=== PATIENT | male | born 1935 | race Caucasian/White ===

== ENCOUNTER 2018-04-11 11:24 | Outpatient (CLI) | payer MEDICARE, OTHER ==
--- NOTE | ~2018-04-11 | OP ---
PATIENT NAME: SHERRILL CLARK MEDICAL RECORD: [id number] :35 LOCATION:D.CAT ADMISSION DATE: SURGEON: ANAND HOUESR MD DATE OF OPERATION: 04/11/2018 PROCEDURE: Left heart catheterization, selective coronary angiography, right radial approach. CATHETERS: Radial sheath, [place] catheter. The procedure was well tolerated, the patient returned to jimenez, Sheath was removed. TR band placed. FINDINGS: Left ventriculography in 30-degree ROBIN view shows mild global hypokinesis. Overall, LV function 40% to 45%. CORONARY ANATOMY: LEFT MAIN: Left main is free of disease. LAD: Free of disease in the diagonal system. CIRCUMFLEX: Free of disease in the marginal system. RIGHT CORONARY ARTERY: Dominant artery, gives rise to PDA, free of disease. IMPRESSION: Mildly decreased LV systolic function. Suspect will improve with mu-ism of normal sinus rhythm, no obstructive coronary artery disease. TRANSINT:[id number] Voice Confirmation ID: [id number] DOCUMENT ID: [id number] ANAND HOUSER MD at 1505 CC: [id number] DICTATION DATE: 04/11/18 1502 COPPER PLATE PRINTER: 04/11/18 1545 DEP CLI 04/11/18 [id number] [place] [address]
--- NOTE | ~2018-04-11 | OP ---
PATIENT NAME: SHERRILL CLARK MEDICAL RECORD: [id number] :35 LOCATION:D.CAT ADMISSION DATE: SURGEON: ANAND HOUSER MD DATE OF OPERATION: 04/11/2018 PROCEDURE: Cardioversion. DESCRIPTION OF PROCEDURE: After general sedation via TIVA anesthesia, single synchronized shock at 200 joules was successful in restoring atrial flutter to normal sinus rhythm. IMPRESSION: Successful cardioversion. COMPLICATIONS: None. We will proceed next with diagnostic angiography. TRANSINT:[id number] Voice Confirmation ID: [id number] DOCUMENT ID: [id number] ANAND HOUSER MD at 1505 CC: [id number] DICTATION DATE: 04/11/18 1439 QUALITY CONTROL TECHNICIAN: 04/11/18 1449 [facility] CLI 04/11/[address] [address]
--- NOTE | ~2018-04-11 | HEMODYNAMI ---
PATIENT:SHERRILL CLARK MEDICAL RECORD: [id number] : 35 LOCATION:[facility] ADMISSION DATE: 04/11/18 Generatedon:04/11/201815:04 Patient name: SHERRILL CLARK Patient #: [id number] SSN: : 1935 Date of study: 04/11/2018 Page: Of Hemodynamic Procedure Report Patient Data Patient Demographics Procedure consent was obtained First Name: SHERRILL Gender: Male Last Name: EDUARDO : 1935 Patient #: [id number] Age: 82 year(s) Race: Unknown Additional ID: [id number] Contact details Address: [place] [address] State: [place] City: [place] Zip code: [address] Past Medical History Allergies Allergen Reaction Date Comments Reported Other allergy 04/11/2018 PCN, Meloxicam Admission Admission Data Admission Date: 04/11/2018 Admission Time: 11:24 Procedure Procedure Types Cath Procedure Diagnostic Procedure LHC LHC w/Coronaries Cardioversion External Procedure Description Procedure Date Procedure Date: 04/11/2018 Procedure Start Time: 14:47 Procedure End Time: 15:03 Procedure Staff Name Function Jun Aguilar CRNA Additional personnel Remington Calvert MD Performing Physician Donnie Maldonado RT Monitor Emi Sexton RT Scrub Rene Tyson RN Nurse Jeny Fierro RT Monitor Procedure Data Cath Procedure Fluoroscopy Diagnostic fluoroscopy Total fluoroscopy Time: 3 time: 3 min min Diagnostic fluoroscopy Total fluoroscopy dose: 326 dose: 326 mGy mGy Contrast Material Contrast Material Type Amount (ml) Isovue 300 68 Entry Location Entry Primary Successful Side Size Upsize Upsize Entry Closure Meraz ccessful Closure Location (Fr) 1 (Fr) 2 (Fr) Remarks Device Remarks Radial Right 6 Fr Mechanical artery Short Compression Estimated blood loss: 5 ml Diagnostic catheters Device Type Used For End Catheter Placement DIAGNOSTIC Coinjock 110cm 5 LV Angiography Fr catheter ([id number]) DIAGNOSTIC Coinjock 110cm 5 Left Coronary Fr catheter ([id number]) Angiography DIAGNOSTIC AR MOD 5Fr Right Coronary Catheter ([id number]) Angiography Procedure Complications No complications Procedure Medications Medication Administration Route Dosage 0.9% NaCl I.V. 100 ml/hr Oxygen etCO2 Nasal cannula 3 l/min Heparin Flush Bag added to field 2 bags (1000units/500ml NS) Lidocaine 2% added to field 20 Radial Cocktail added to field 1 syringe (Verapomil 2mg/Nitro 400mcg/Heparin 1500units) Refer to Anesthesia Notes for Sedation Medications Radial Cocktail I.A. 1 syringe (Verapomil 2mg/Nitro 400mcg/Heparin 1500units) Oxygen 3 l/min Hemodynamics Rest Heart Rate: 62 (bpm) Pressure Samples Time Site Value (mmHg) Purpose Heart Use Rate(bpm) 14:51 LV 85/4,6 EDP 76 14:51 LV 88/10,11 Pullback 76 14:51 AO 88/62(75) Pullback 76 Gradients Valve Time Site 1 Site 2 Mean SEP/DFP Peak To Heart Use (mmHg) (sec/min) Peak Rate (mmHg) (bpm) Aortic 14:51 LV AO 0 11 0 76 88/10,11 88/62(75) Calculations Valve P-P Mean Valve Index Valve Source Name Gradient Area Flow (cm2) Aortic 0 0 0 0 Snapshots Pre Cath Intra NCS Post Cath Vital Signs Time Heart Resp SPO2 etCO2 NIBP (mmHg) Rhythm Pain Sedation Rate (ipm) (%) (mmHg) Status Level (bpm) 14:22:04 73 16 98 24.6 120/80(109) NSR 0 (11) 10(A) , No pain 14:26:23 68 14 98 28.4 136/101(115) NSR 0 (11) 10(A) , No pain 14:30:47 72 12 89 0 103/63(75) NSR 0 (11) 8(A) , No pain 14:35:03 79 14 90 0 104/77(87) NSR 0 (11) 8(A) , No pain 14:39:19 75 15 88 0 107/76(92) NSR 0 (11) 8(A) , No pain 14:43:37 78 14 87 0 97/69(83) NSR 0 (11) 8(A) , No pain 14:47:51 76 14 96 2.2 101/71(84) NSR 0 (11) 8(A) , No pain 14:52:09 75 14 96 0 94/63(80) NSR 0 (11) 8(A) , No pain 14:56:23 68 13 94 1.4 100/64(86) NSR 0 (11) 9(A) , No pain 15:00:39 77 13 88 8.9 101/68(85) NSR 0 (11) 9(A) , No pain Medications Time Medication Route Dose Verified Delivered Reason Notes Effectiveness by by 14:19:50 0.9% NaCl I.V. 100 Rene Rene Per ml/hr Marbella Tyson physician RN RN 14:20:01 Oxygen etCO2 3 l/min Rene Rene Per Nasal Marbella Tyson physician cannula RN RN 14:20:13 Heparin Flush added 2 bags Rene Rene used for Bag to Lorbriseida Tyson procedure (1000units/500ml field RN RN NS) 14:20:24 Lidocaine 2% added 20ml Rene Rene for local to vial Lorigan Marbella anesthetic field RN RN 14:20:40 Radial Cocktail added 1 Rene Rene used for (Verapomil to syringe Lorigan Lorigan procedure 2mg/Nitro field RN RN 400mcg/Hepari 14:27:55 Refer to Rene Rene for sedation Anesthesia Notes Marbella Tyson for Sedation RN RN Medications 14:44:43 Oxygen simple 3 l/min Rene Rene for low 02 mask Marbella live RN RN 14:48:36 Radial Cocktail I.A. 1 Rene Remington for (Verapomil syringe Lorigan Enrike vasodilation 2mg/Nitro MONTY JOHNSON 400mcg/Hepari Procedure Log Time Note 13:50:10 Rene Tyson RN sent for patient. Start room use. 14:05:48 Informed consent obtained and on chart 14:06:09 Diagnostic Cath status Elective 14:06:23 Time tracking: Regular hours (M-F 7:00 - 5:00) 14:06:27 Plan of Care:Hemodynamics will remain stable., Cardiac rhythm will remain stable., Comfort level will be maintained., Respiratory function will remain adequate., Patient/ family verbilizes understanding of procedure., Procedure tolerated without complication., Recovers from procedure without complications.. 14:06:53 Patient received from Pre/Post Procedure Room to [facility] 3 Alert and oriented. Tansferred to table in Supine position. 14:06:54 Correct patient and procedure confirmed by team. 14:06:54 Warm blankets applied, and melisa hugger turned on for patient comfort. 14:06:55 ECG and BP/O2 sat monitors applied to patient. 14:06:56 Pre-op teaching completed and patient verbalized understanding. 14:06:56 Pre-procedure instructions explained to patient. 14:07:05 H&P Date Dictated: 04/07/2018 Within 30 days and on chart., H&P Addendum completed by physician on day of procedure. (MUST COMPLETE FOR ALL OUTPATIENTS). 14:07:32 Family in waiting room. 14:07:35 Patient NPO since Midnight. 14:15:34 Patient allergic to Other allergyPCN, Meloxicam 14:15:41 Is the patient allergic to Iodine/contrast media? No. 14:15:45 Was the patient premedicated? Yes 14:15:54 Is patient on blood thinner?No 14:16:00 Patient diabetic? No. 14:16:06 Snore? Yes 14:16:07 Sleep apnea? Yes 14:16:09 Deviated septum? No 14:16:16 Dentures? No ? 14:16:36 Patient pain scale 0/10 ?. 14:16:46 IV patent on arrival in left antecubital with 0.9% NaCl at [facility]. 14:17:42 Lab results completed and on chart. 14:17:45 Alarms reviewed by R. N. 14:17:46 Sharps counted by scrub and verified by R.N. 14:17:48 Physician paged 14:19:50 0.9% NaCl 100 ml/hr I.V. was administered by Rene Tyson RN; Per physician; 14:20:01 Oxygen 3 l/min etCO2 Nasal cannula was administered by Rene Tyson RN; Per physician; 14:20:13 Heparin Flush Bag (1000units/500ml NS) 2 bags added to field was administered by Rene Tyson RN; used for procedure; 14:20:24 Lidocaine 2% 20ml vial added to field was administered by Rene Tyson RN; for local anesthetic; 14:20:40 Radial Cocktail (Verapomil 2mg/Nitro 400mcg/Heparin 1500units) 1 syringe added to field was administered by Rene Lorigan RN; used for procedure; 14::46 Vital chart was started 14:21:35 Quick Combo opened to sterile field. 14:22:33 Jun Aguilar CRNA present and monitoring patient for TIVA. 14:22:36 Quick combo pads placed on patients chest and back. 14:22:53 Baseline sample Acquired. 14:23:00 Rhythm: atrial fibrillation 14:23:01 Full Disclosure recording started 14:23:09 Previous problem with sedation/anesthesia? No ? 14:23:11 Opens mouth fully? Yes 14:23:12 Sticks out tongue? Yes 14:23:14 Airway obstruction? No ? 14:25:56 --------ALL STOP TIME OUT------ 14:25:56 Physician arrived 14:25:57 Final Timeout: patient, procedure, and site verified with staff and physician. All members of the team are in agreement. 14:26:02 Physical assessment completed. ASA score P 3 - A patient with severe systemic disease as per Remington Calvert MD. 14:26:06 Sedation plan: TIVA Medication:Propofol 14:27:17 Procedure started. 14:27:54 Defibrillator synced and charged to 50 Joules. 14:27:55 Refer to Anesthesia Notes for Sedation Medications was administered by Rene Tyson RN; for sedation; 14:27:55 Shock delivered. 14:28:13 Defibrillator synced and charged to 200 Joules. 14:28:43 Shock delivered. 14:29:12 Patient cardioverted to sinus rhythm . 14:31:24 Right Radial & Right Groin area was prepped with chlora-prep and draped in sterile fashion 14:38:32 Alarms reviewed by R. N. 14:38:33 Sharps counted by scrub and verified by R.N. 14:38:37 Physician arrived 14:38:38 Final Timeout: patient, procedure, and site verified with staff and physician. All members of the team are in agreement. 14:38:38 --------ALL STOP TIME OUT------ 14:38:40 Right Radial & Right Groin site verified by team. 14:38:43 Physical assessment completed. ASA score P 3 - A patient with severe systemic disease as per Remington Calvert MD. 14:38:46 Sedation plan: TIVA Medication:Propofol 14:39:08 Use device set Radial Dx or PCI 14:39:09 ACIST Syringe (88319) opened to sterile field. 14:39:10 ACIST Manifold (34123) opened to sterile field. 14:39:10 ACIST Hand Control (88981) opened to sterile field. 14:39:14 Bag Decanter (2001S) opened to sterile field. 14:39:14 Medline Cath Pack ([id number]) opened to sterile field. 14:39:16 SHEATH 6Fr Prelude Radial ([id number]) opened to sterile field. 14:39:17 DIAGNOSTIC WIRE .035 260cm J wire (677289) opened to sterile field. 14:43:20 Zero performed for pressure channel P1 14:43:23 Zero performed for pressure channel P1 14:44:43 Oxygen 3 l/min simple mask was administered by Rene Tyson RN; for low 02 sats; 14:47:18 Local anesthetic to right radial artery with Lidocaine 2% by Remington Calvert MD.INITIAL ACCESS ONLY 14:48:36 Radial Cocktail (Verapomil 2mg/Nitro 400mcg/Heparin 1500units) 1 syringe I.A. was administered by Remington Calvert MD; for vasodilation; 14:48:38 A 6 Fr Short sheath was inserted into the Right Radial artery 14:49:08 A DIAGNOSTIC Coinjock 110cm 5 Fr catheter (480602) was advanced over the wire and used for LV Angiography. 14:51:15 LV gram done using ROBIN 14:51:16 LV hemodynamics recorded. 14:51:20 Injector settings: Ml/sec: 5, Volume: 15, 14:51:26 EF : 45 % 14:52:39 A DIAGNOSTIC Coinjock 110cm 5 Fr catheter (103546) was advanced over the wire and used for Left Coronary Angiography. 14:54:10 Catheter removed. 14:55:21 A DIAGNOSTIC AR MOD 5Fr Catheter (994620L) was advanced over the wire and used for Right Coronary Angiography. 14:56:20 Catheter removed. 14:56:42 TR BAND Large ([id number]) opened to sterile field. 14:56:54 Sheath removed intact; hemostasis achieved with Mechanical Compression to the Right Radial artery. 14:56:56 Procedure ended.(Physican Out) 14:57:14 Fluoroscopy time 03.00 minutes. 14:57:18 Fluoroscopy dose: 326 mGy 14:57:18 Flurop Dose total: 326 14:57:25 Contrast amount:Isovue 300 68ml. 14:57:28 Sharps counted by scrub and verified by R.N. 14:57:30 TR band inflated with 12cc of air. 14:57:31 Insertion/operative site no bleeding no hematoma. 14:57:37 Post right radial artery:stable, clean and dry 14:57:38 Post Procedure Pulses reassessed and unchanged 14:57:40 Post-procedure physical assessment completed. ASA score P 2 - A patient with mild systemic disease as per Remington Calvert MD. 14:57:43 Post procedure rhythm: sinus rhythm 14:57:48 Estimated blood loss: 5 ml 14:57:49 Post procedure instruction explained to patient.Patient verbalizes understanding. 14:57:55 Patient needs reinforcement of post procedure teaching. 14:58:12 Procedure Complication : No complications 14:58:22 Baseline sample Acquired. 14:58:28 See physician's report for complete and final results. 15:00:05 Procedure and supply charges have been captured, reviewed, submitted and are correct. 15:03:01 Vital chart was stopped 15:03:04 Report given to Pre/Post Procedure Room. 15:03:07 Patient transfered to Pre/Post Procedure Room with Stretcher. 15:03:15 Full Disclosure recording stopped 15:03:15 Procedure ended. 15:03:21 End room use (Document Last) Device Usage Item Name Manufacture Quantity Catalog Number Hospital Part Current M inimal Lot# / Charge Number Stock Stock Serial# Code Quick Combo HackerEarth Systems 1 [id number] 463541 012820 890942 5 ACIST Syringe Acist 1 04079 066767 125788 012290 2 0 (50137) Medical Systems Inc ACIST Hand Acist 1 38424 193313 676134 171303 5 Control (88852) Medical Systems Inc ACIST Manifold Acist 1 76466 484180 607708 867120 5 (93055) Medical Systems Inc Medline Cath Cardinal 1 [id number] 132845 46383 906232 5 Pack Health ([id number]) Bag Decanter Microtek 1 416445 10747 045525 5 () Medical Inc. SHEATH 6Fr Merit 1 [id number] 876607 989066 909564 5 Prelude Radial Medical ([id number]) DIAGNOSTIC WIRE St Javon 1 720780 276267 646502 536502 3 0 .035 260cm J wire (953356) DIAGNOSTIC Terumo 1 40-2172 122742 657846 016157 5 Coinjock 110cm 5 Fr catheter (098138) DIAGNOSTIC AR Cardinal 1 [id number] 893783 652668 546832 1 5 MOD 5Fr Health Catheter (801358W) TR BAND Large Terumo 1 [id number] 711405 454847 777884 4 0 ([id number]) Signature Audit [place] Stage Time Signature Unsigned Intra-Procedure 04/11/2018 Jeny 3:04:37 PM Counts RT(R) Signatures Monitor : Donnie Maldonado RT Signature : Date : Time : Monitor : Jeny Signature : Counts RT Date : Time : [address] [address]
[~2018-04-11 11:24] MED LIST: BETAPACE 120 M120 MG PO; XARELTO20 MG PO
[2018-04-11 12:51] LABS: BASOPHILS 0.5 % (0-2); EOSINOPHILS 2.9 % (0-7); HEMATOCRIT 43.4 % (42.0-54.0); IMMATURE GRANULOCYTES 0.2 % (0-5); MCH 33.8 pg (26.0-34.0); MCHC 34.6 g/dL (31.0-37.0); MCV 97.7 fL (80.0-100.0); MEAN PLATELET VOLUME 10.5 fL (7.4-10.4); MONOCYTES 15.5 % (2-11); NEUTROPHILS 46.9 % (40-80); PLATELET COUNT 200 10x3/uL (130-400); RBC 4.44 10x6/uL (4.20-6.10); RDW 12.2 % (11.5-14.5); WBC 6.5 10x3/uL (4.8-10.8)
[2018-04-11 12:56] LABS: INR 1.11 (0.85-1.17); PROTIME 13.9 SECONDS (11.6-15.0)
[2018-04-11 13:03] LABS: CALC OSMOLALITY 280 mosm/kg (275-300); CALCIUM 8.5 mg/dL (8.5-10.1); CARBON DIOXIDE 27.7 mmol/L (21.0-32.0); CHLORIDE - SERUM 105 mmol/L (98-107); CREATININE - SERUM 0.9 mg/dL (0.6-1.3); GLUCOSE 104 mg/dL (74-106); POTASSIUM - SERUM 4.5 mmol/L (3.5-5.1); SODIUM 140 mmol/L (136-145); UREA NITROGEN 18 mg/dL (7-18); eGFR NON AFRICAN AMERICAN 86 mL/min (90-120)
== END 2018-04-11 18:14 ==
LOC: D.CATH 11:24
PROVIDERS: Internal Medicine Interventional Cardiology
DX: I48.1 Persistent atrial fibrillation (principal); R53.83 Other fatigue; R53.81 Other malaise; R94.31 Abnormal electrocardiogram [ECG] [EKG]; R06.00 Dyspnea, unspecified; I42.9 Cardiomyopathy, unspecified; I20.9 Angina pectoris, unspecified

== ENCOUNTER 2019-01-30 15:19 | Inpatient (IN) | payer MEDICARE ==
[~2019-01-30] VITALS: Ht 182.9 cm; Wt 118.4 kg
[2019-01-30 15:50] VITALS: BMI 35.5
[2019-01-30 18:30] LABS: APPEARANCE CLEAR (CLEAR); BILIRUBIN NEGATIVE (NEGATIVE); COLOR YELLOW (YELLOW); GLUCOSE NEGATIVE (NEGATIVE); KETONE NEGATIVE (NEGATIVE); NITRITE NEGATIVE (NEGATIVE); PROTEIN NEGATIVE (NEGATIVE); UROBILINOGEN NORMAL (NORMAL)
[2019-01-30 18:35] LABS: BASOPHILS 0.5 % (0-2); EOSINOPHILS 4.6 % (0-7); HEMATOCRIT 40.5 % (42.0-54.0); HEMOGLOBIN 13.6 g/dL (13.5-17.5); IMMATURE GRANULOCYTES 0.5 % (0-5); LYMPHOCYTES 34.5 % (15-50); MCH 33.5 pg (26.0-34.0); MCHC 33.6 g/dL (31.0-37.0); MCV 99.8 fL (80.0-100.0); MEAN PLATELET VOLUME 10.8 fL (7.4-10.4); MONOCYTES 12.1 % (2-11); NEUTROPHILS 47.8 % (40-80); PLATELET COUNT 192 10x3/uL (130-400); RBC 4.06 10x6/uL (4.20-6.10); RDW 12.4 % (11.5-14.5); WBC 7.3 10x3/uL (4.8-10.8)
[2019-01-30 19:01] LABS: INR 1.23 (0.85-1.17)
[2019-01-30 19:06] LABS: ALBUMIN 3.4 g/dL (3.4-5.0); ALKALINE PHOSPHATASE 34 U/L (46-116); ALT (SGPT) 34 U/L (10-68); BILIRUBIN - TOTAL 0.51 mg/dL (0.2-1.3); CALC OSMOLALITY 282 mosm/kg (275-300); CALCIUM 8.2 mg/dL (8.5-10.1); CARBON DIOXIDE 26.6 mmol/L (21.0-32.0); CHLORIDE - SERUM 104 mmol/L (98-107); GLUCOSE 146 mg/dL (74-106); POTASSIUM - SERUM 4.3 mmol/L (3.5-5.1); SODIUM 139 mmol/L (136-145); UREA NITROGEN 18 mg/dL (7-18); eGFR NON AFRICAN AMERICAN 76 mL/min (90-120)
--- NOTE | 2019-01-30 19:45 | NUR ---
SITTING UP IN BED TALKING TO FAMILY. ALERT AND ORIENTED X4. RESP EVEN AND NONLABORED. BBS CTA. ABD IS DISTENDED AND FIRM. BS PRESENT X4 QUADS. REPORTS BLOODY BM TODAY. HAS HX OF HEMORRHOIDECTOMY. DENIES PAIN. DENIES N/V/D. 1+ EDEMA NOTED TO BLE. AMBULATORY. PROTONIX DRIP INFUSING IN LT WRIST. NO DISTRESS. SR ELEVATED X1. CL IN REACH.
[2019-01-30 20:52] VITALS: BP 112/73
--- NOTE | 2019-01-30 22:00 | NUR ---
22G IV CATH INSERTED IN LT FOREARM FOR NS @ 75 ML/HR. PROTONIX INFUSING IN LT WRIST. CL IN REACH.
[2019-01-31 00:53] VITALS: BP 142/68
--- NOTE | 2019-01-31 03:27 | NUR ---
HAS RESTED WELL TONIGHT. NO BM SO FAR THIS SHIFT. CL IN REACH.
[2019-01-31 05:42] VITALS: BP 129/63
[2019-01-31 06:25] LABS: ALBUMIN 3.1 g/dL (3.4-5.0); ALKALINE PHOSPHATASE 27 U/L (46-116); ALT (SGPT) 30 U/L (10-68); BILIRUBIN - TOTAL 0.74 mg/dL (0.2-1.3); CALC OSMOLALITY 284 mosm/kg (275-300); CALCIUM 8.3 mg/dL (8.5-10.1); CARBON DIOXIDE 26.8 mmol/L (21.0-32.0); CHLORIDE - SERUM 107 mmol/L (98-107); CREATININE - SERUM 0.9 mg/dL (0.6-1.3); GLUCOSE 112 mg/dL (74-106); POTASSIUM - SERUM 4.1 mmol/L (3.5-5.1); PROTEIN - SERUM 6.6 g/dL (6.4-8.2); SODIUM 142 mmol/L (136-145); UREA NITROGEN 15 mg/dL (7-18); eGFR NON AFRICAN AMERICAN 85 mL/min (90-120)
[2019-01-31 08:13] LABS: BASOPHILS 0.5 % (0-2); EOSINOPHILS 5.2 % (0-7); HEMATOCRIT 37.3 % (42.0-54.0); HEMOGLOBIN 12.4 g/dL (13.5-17.5); IMMATURE GRANULOCYTES 0.5 % (0-5); LYMPHOCYTES 35.1 % (15-50); MCH 33.1 pg (26.0-34.0); MCHC 33.2 g/dL (31.0-37.0); MCV 99.5 fL (80.0-100.0); MEAN PLATELET VOLUME 11.2 fL (7.4-10.4); NEUTROPHILS 42.7 % (40-80); PLATELET COUNT 180 10x3/uL (130-400); RBC 3.75 10x6/uL (4.20-6.10); RDW 12.6 % (11.5-14.5); WBC 6.2 10x3/uL (4.8-10.8)
[2019-01-31 08:48] VITALS: Ht 182.9 cm; Wt 118.4 kg
[2019-01-31 09:13] VITALS: BP 151/89
--- NOTE | 2019-01-31 10:23 | NUR ---
MORNING ASSESSMENT COMPLETE. SEE ASSESSMENT FLOWSHEET FOR FURTHER DETAILS. PT LYING IN BED AAO X4 TO PERSON, PLACE, TIME, AND SITUATION. DENIES NEEDS AT THSI TIME. CL IN REACH. SIDE RAILS UP X3 FOR PT SAFETY. BED IN LOWEST POSITION.
--- NOTE | 2019-01-31 13:47 | HP ---
PATIENT: SHERRILL JARRETT MEDICAL RECORD: [id number] ACCOUNT: [id number] LOCATION:D.MS [facility] : 35 ADMISSION DATE: 01/30/19 PCP: ASAEL ESTES DO HISTORY AND PHYSICAL EXAMINATION HISTORY OF PRESENT ILLNESS: Mr. Jarrett is an 83-year-old white male that presents to the clinic today with 1- to 2-day history of bleeding per rectum. It started out with some bright red blood, now dark black stools. Really no abdominal pain. He is on Eliquis for chronic atrial fib and history of thromboembolic stroke. His hemoglobin is stable. Due to his advanced age, anticoagulation therapy, and risk of deterioration, he is admitted at this time for further evaluation and GI consult will be obtained. PAST MEDICAL HISTORY: Significant for osteoarthritis, vertigo, obesity, macular degeneration, chronic atrial fibrillation, hyperlipidemia, KELL, fatigue, rhinitis, and constipation. PAST SURGICAL HISTORY: Previous surgeries include cataracts, bilateral knee replacements in 1999, and colonoscopy in 1993. ALLERGIES: INCLUDE MOBIC AND PENICILLIN. HOME MEDICATIONS: Include vitamin D, pravastatin 10 mg a day, Eliquis 5 b.i.d., sotalol 80 mg b.i.d., sildenafil p.r.n., ipratropium, fish oil, ICaps, and Flonase p.r.n. FAMILY HISTORY: Unremarkable. SOCIAL HISTORY: The patient used tobacco for 34 years. He quit in 1987. He does not drink. He is and his is with him today. REVIEW OF SYSTEMS: No weight loss. No fever, chills, or sweats. No chest pain or shortness of breath. No abdominal pain. History of constipation. Recent bloody stools with black tarry stools. No dysuria. PHYSICAL EXAMINATION: HEAD: Normocephalic. HEART: Regular. LUNGS: Clear. ABDOMEN: Soft. RECTAL: Reveals no masses. It is strongly Hemoccult positive. EXTREMITIES: Lower extremities reveal no edema. IMPRESSION: 1. GI bleed. 2. Chronic anticoagulation therapy secondary to atrial fib. PLAN: Admit. GI consult. Hold Eliquis for now. Telemetry. See orders for plan. TRANSINT:[id number] Voice Confirmation ID: [id number] DOCUMENT ID: [id number] HISTORY AND PHYSICAL [id number] SHERRILL JARRETT ASAEL ESTES DO at 1347 CC: [id number] DICTATION DATE: 01/30/191836 SUPPORT GROUP MANAGER: 01/30/191909 ADM IN [place] [address] [place] [id number]
[2019-01-31 14:08] VITALS: BP 155/73
--- NOTE | 2019-01-31 19:20 | NUR ---
DRINKING GOLYTELY PREP. INSTRUCTED TO CALL STAFF AFTER BM SO STAFF CAN LOOK AT IT. INFSTRUCTED OF NPO AFTER MIDNIGHT AND HE VERBALIZED UNDERSTANDING. WANTS TO SIGN SURGICAL CONSENTS FOR HIM IN AM. ALERT AND ORIENTED X4. RESP EVEN AND NONLABORED. ABD DISTENDED AND FIRM. BS HYPERACTIVE X4 QUADS. DENIES PAIN. AMBULATORY. NS @ 75 ML/HR INFUSING IN LT WRIST. NEXIUM DRIP INFUSING IN LT FOREARM WITHOUT DIFF. SR ELEVATED X2. CL IN REACH.
[2019-01-31 21:18] VITALS: BP 170/87
--- NOTE | 2019-01-31 23:50 | NUR ---
PT DRANK ALL OF GOLYTELY. BMS HAVE BEEN LOOSE AND DARK BROWN IN COLOR. NO VISIBLE BLOOD NOTED. PT LILIANE PREP WELL. NO DISTRESS. DENIES PAIN. CL IN REACH.
[2019-02-01] VITALS (8 sets, daily range): BP systolic 132–178; BP diastolic 69–102
[2019-02-01 05:05] LABS: BASOPHILS 0.3 % (0-2); EOSINOPHILS 5.4 % (0-7); HEMATOCRIT 37.7 % (42.0-54.0); HEMOGLOBIN 12.7 g/dL (13.5-17.5); IMMATURE GRANULOCYTES 0.5 % (0-5); LYMPHOCYTES 32.6 % (15-50); MCH 33.2 pg (26.0-34.0); MCHC 33.7 g/dL (31.0-37.0); MCV 98.7 fL (80.0-100.0); MEAN PLATELET VOLUME 10.9 fL (7.4-10.4); MONOCYTES 14.1 % (2-11); NEUTROPHILS 47.1 % (40-80); PLATELET COUNT 173 10x3/uL (130-400); RBC 3.82 10x6/uL (4.20-6.10); RDW 12.6 % (11.5-14.5); WBC 6.1 10x3/uL (4.8-10.8)
[2019-02-01 05:31] LABS: ALBUMIN 3.3 g/dL (3.4-5.0); ALKALINE PHOSPHATASE 26 U/L (46-116); CALC OSMOLALITY 282 mosm/kg (275-300); CALCIUM 8.1 mg/dL (8.5-10.1); CHLORIDE - SERUM 108 mmol/L (98-107); CREATININE - SERUM 0.9 mg/dL (0.6-1.3); GLUCOSE 102 mg/dL (74-106); PROTEIN - SERUM 6.8 g/dL (6.4-8.2); SODIUM 142 mmol/L (136-145); UREA NITROGEN 12 mg/dL (7-18); eGFR NON AFRICAN AMERICAN 85 mL/min (90-120)
[2019-02-01 05:41] LABS: ALT (SGPT) 40 U/L (10-68)
--- NOTE | 2019-02-01 05:57 | NUR ---
STATES HIS BMS ARE CLEAR. DENIES PAIN. NO DISTRESS. CL IN REACH.
--- NOTE | 2019-02-01 07:45 | NUR ---
AWAKE AND ALERT. ORIENTED X3. NO C/O AT THIS TIME. REPORTS WATERY STOOLS LAST PM AFTER GOLYTLY.WILL MONITOR. SKIN IS INTACT WITHOUT REDNESS. IV TO LEFT WRIST AND LEFT FOREARM ARE PATENT WITHOUT REDNESS AT INSERTION SITE. DENIES NEEDS.
--- NOTE | 2019-02-01 08:30 | NUR ---
HERE AND CONSENTS COMPLETED.DENIES NEEDS.
--- NOTE | 2019-02-01 10:30 | NUR ---
OFF UNIT VIA BED FOR PROCEDURE.
--- NOTE | 2019-02-01 12:46 | NUR ---
RETURNED FROM PROCEDURE. A/O X3. FAMILY AT BEDSIDE. DENIES NEEDS.
--- NOTE | 2019-02-01 13:30 | NUR ---
UP TO BR PER SELF. VOIDED WITHOUT DIFFICULTY. DENIES NEEDS. NO CHANGES NOTED.
--- NOTE | 2019-02-01 13:49 | MORECARE ---
CASE MANAGEMENT DISCHARGE SUMMARY PATIENT: SHERRILL CLARK UNIT: [id number] ADM DATE: 01/30/19 AGE: 83 : 35 SEX: M ROOM/BED: D.2207 AUTHOR: PATTY MONTEZ PHYSICIAN: REFERRING PHYSICIAN: ASAEL ESTES DO DATE OF SERVICE: 02/01/19 Discharge Plan Patient Name: SHERRILL CLARK Facility: [facility]:[place] : 1935 Planned Disposition: Home Anticipated Discharge Date: Discharge Date: Expected LOS: Initial Reviewer: [email or web address] Initial Review Date: 01/30/2019 Generated: 02/01/19 2:49 pm Comments DCP- Discharge Planning Updated by [email or web address]: Emma Muir on 02/01/19 12:[address] Patient Name: SHERRILL CLARK Admission Status: Urgent Accout number: [id number] Admission Date: 01-30-2019 : 1935 Admission Diagnosis: Attending: ASAEL ESTES Current LOS: 2 Anticipated DC Date: Planned Disposition: Home Primary Insurance: MEDICARE A & B Discharge Planning Comments: CM met with patient to complete initial dc planning assessment. CM educated patient on the CM role and verbal consent given by patient to complete assessment. Patient lives at home with his where he is independent with his care. At discharge patient plans to return home and feels this is a safe discharge. CM discussed availability of home health, rehab services, and medical equipment. He stated that he has a BSC,walker, and crutches at home, but does not use anything. His , Pedro Pablo will be his route driver home. Patient denied known discharge needs at this time. CM will continue to follow and will assist as needed with dc plans/needs. Applied Researcher: Emma Muir DCPIA - Discharge Planning Initial Assessment Updated by [email or web address]: Emma Muir on 02/01/19 1:46 pm * Is the patient Alert and Oriented? Yes * How many steps to enter\exit or inside your home? * PCP [facility] * Pharmacy [facility] * Preadmission Environment Home with Family * ADLs Independent * Equipment Bedside Commode Crutch Rolling Walker * List name and contact numbers for known caregivers / representatives who currently or will assist patient after discharge: PEDRO PABLO (SPOUSE) [phone] * Verbal permission to speak to the caregivers and representatives has been obtained from the patient. N/A * Community resources currently utilized None * Additional services required to return to the preadmission environment? No * Can the patient safely return to the preadmission environment? Yes * Has this patient been hospitalized within the prior 30 days at any hospital? No Patient Name: EDUARDO SHERRILL Page [id number] at 1349 All edits/amendments must be made on the electronic document DICTATION DATE: 02/01/19 1348 CADDYMASTER: NORMA 02/01/19 1348 RPT#: [id number] OK DATE: STATUS: ADM IN [facility] [address] [place] [address] END OF REPORT
--- NOTE | 2019-02-01 14:53 | NUR ---
Nutrition follow up Pt was NPO past MN Diet advanced to full liquid Pt reports tolerating full liquid diet well RD following
--- NOTE | 2019-02-01 18:24 | NUR ---
ATE ALL OF FULL LIQUID SUPPER TRAY. DENIES NEEDS. NO CHANGES NOTED.
--- NOTE | 2019-02-01 20:11 | NUR ---
AWAKE,ALERT.NO COMPLAINTS VOICED. RESP EVEN AND UNLABORED. NO DISTRESS NOTED. IV SITE X 2 TO LEFT ARM WITHOUT REDNESS OR EDEMA NOTED. UP AD EASTON IN ROOM. CL IN REACH
[2019-02-02 00:51] VITALS: BP 163/86
--- NOTE | 2019-02-02 02:55 | NUR ---
I have reviewed this patient and I concur with the Shift Assessment completed by the Licensed Practical Nurse today this shift.
[2019-02-02 04:00] VITALS: BP 153/94
[2019-02-02 04:40] LABS: BASOPHILS 0.3 % (0-2); HEMATOCRIT 37.8 % (42.0-54.0); HEMOGLOBIN 12.7 g/dL (13.5-17.5); IMMATURE GRANULOCYTES 0.1 % (0-5); LYMPHOCYTES 24.2 % (15-50); MCH 33.1 pg (26.0-34.0); MCHC 33.6 g/dL (31.0-37.0); MCV 98.4 fL (80.0-100.0); MEAN PLATELET VOLUME 10.8 fL (7.4-10.4); MONOCYTES 14.1 % (2-11); NEUTROPHILS 58.3 % (40-80); PLATELET COUNT 170 10x3/uL (130-400); RBC 3.84 10x6/uL (4.20-6.10); RDW 12.6 % (11.5-14.5); WBC 7.2 10x3/uL (4.8-10.8)
[2019-02-02 04:48] LABS: ALBUMIN 3.3 g/dL (3.4-5.0); ALKALINE PHOSPHATASE 27 U/L (46-116); ALT (SGPT) 37 U/L (10-68); CALC OSMOLALITY 281 mosm/kg (275-300); CALCIUM 8.2 mg/dL (8.5-10.1); CARBON DIOXIDE 30.5 mmol/L (21.0-32.0); CHLORIDE - SERUM 106 mmol/L (98-107); CREATININE - SERUM 0.9 mg/dL (0.6-1.3); GLUCOSE 101 mg/dL (74-106); POTASSIUM - SERUM 3.8 mmol/L (3.5-5.1); PROTEIN - SERUM 6.9 g/dL (6.4-8.2); SODIUM 142 mmol/L (136-145); UREA NITROGEN 10 mg/dL (7-18); eGFR NON AFRICAN AMERICAN 85 mL/min (90-120)
--- NOTE | 2019-02-02 07:41 | NUR ---
AWAKE AND ALERT. ORIENTED X3. C/O HEADACHE THIS AM. LUNGS ARE CLEAR BILATERALLY, NO COUGH NOTED. SKIN IS INTACT WITHOUT REDNESS. SL TO LEFT FOREARM IS PATENT WITHOUT REDNESS AT INSERTION SITE. IV TO LEFT WRIST IS PATETN WITHOUT REDNESS AT INSERTION SITE. DENIES NEEDS.
[2019-02-02 09:39] VITALS: BP 134/82
--- NOTE | 2019-02-02 09:45 | NUR ---
C/O HEADACHE. GIVEN HYDROCODONE 7.5 PO FOR SAME. WILL MONITOR.
[2019-02-02] MEDS ORDERED: PROTONIX40 MG PO (11:16)
--- NOTE | 2019-02-02 11:21 | NUR ---
RESTING QUIETLY WTIH EYES CLOSED. REPORTS HEADACHE ALMOST GONE.
[2019-02-02] MEDS ORDERED: HYDROCODON-ACE1 EAC7 PO (12:17)
--- NOTE | 2019-02-02 12:31 | MORECARE ---
CASE MANAGEMENT DISCHARGE SUMMARY PATIENT: SHERRILL CLARK UNIT: [id number] ADM DATE: 01/30/19 AGE: 83 : 35 SEX: M ROOM/BED: D.2207 AUTHOR: PATTY MONTEZ PHYSICIAN: REFERRING PHYSICIAN: ASAEL ESTES DO DATE OF SERVICE: 02/02/19 Discharge Plan Patient Name: SHERRILL CLARK Facility: [facility]:[place] : 1935 Planned Disposition: Home Anticipated Discharge Date: Discharge Date: Expected LOS: Initial Reviewer: [email or web address] Initial Review Date: 01/30/2019 Generated: 02/02/19 1:31 pm Comments DCP- Discharge Planning Updated by [email or web address]: Emma Muir on 02/02/19 11:[address] PATIENT WILL BE DISCHARGING HOME TODAY, IMM SERVED AND EXPLAINED. PATIENT DENIES ANY NEEDS AT THIS TIME DCP- Discharge Planning Updated by [email or web address]: Emma Muir on 02/01/19 12:[address] Patient Name: SHERRILL CLARK Admission Status: Urgent Accout number: [id number] Admission Date: 01-30-2019 : 1935 Admission Diagnosis: Attending: ASAEL ESTES Current LOS: 2 Anticipated DC Date: Planned Disposition: Home Primary Insurance: MEDICARE A & B Discharge Planning Comments: CM met with patient to complete initial dc planning assessment. CM educated patient on the CM role and verbal consent given by patient to complete assessment. Patient lives at home with his where he is independent with his care. At discharge patient plans to return home and feels this is a safe discharge. CM discussed availability of home health, rehab services, and medical equipment. He stated that he has a BSC,walker, and crutches at home, but does not use anything. His , Pedro Pablo will be his jukebox route driver home. Patient denied known discharge needs at this time. CM will continue to follow and will assist as needed with dc plans/needs. Disc Recordist: Emma Muir DCPIA - Discharge Planning Initial Assessment Updated by [email or web address]: Emma Muir on 02/01/19 1:46 pm * Is the patient Alert and Oriented? Yes * How many steps to enter\exit or inside your home? * PCP [facility] * Pharmacy [facility] * Preadmission Environment Home with Family * ADLs Independent * Equipment Bedside Commode Crutch Rolling Walker * List name and contact numbers for known caregivers / representatives who currently or will assist patient after discharge: PEDRO PABLO (SPOUSE) [phone] * Verbal permission to speak to the caregivers and representatives has been obtained from the patient. N/A * Community resources currently utilized None * Additional services required to return to the preadmission environment? No * Can the patient safely return to the preadmission environment? Yes * Has this patient been hospitalized within the prior 30 days at any hospital? No Coverage Notice Reviewer: [email or web address] Airam Muir Notice Issued Date-Time: 02/02/2019 11:30 Notice Type: IM Discharge Notice Notice Delivered To: Patient Relationship to Patient: Biological Science Aide Name: Delivery Method: HAND - Hand Delivered Juanis Days: Prior Verbal Notification: Recipient Understood Notice: Yes Recipient Signature: Yes Med Rec Note Co-signed by Attending: Coverage Notice Comment: Last DP export: 02/01/19 12:49 p Patient Name: SHERRILL CLARK Page [phone] at 1231 All edits/amendments must be made on the electronic document DICTATION DATE: 02/02/19 1231 GRINDER: NORMA 02/02/19 1231 RPT#: [id number] DC DATE: STATUS: ADM IN [facility] [address] [place] [address] END OF REPORT
[2019-02-02 13:08] VITALS: BP 130/79
--- NOTE | 2019-02-02 13:45 | NUR ---
ATE REGULAR LUNCH WITHOUT PAIN OF NAUSEA. DISCHARGED TO HOME AMBULATORY WITH . DISCHARGE INSTRUCTIONS GIVEN BOTH VERBALLY AND WRITTEN. ALL QUESTIONS ANSWERED. PATIENT AND VERBALIZED UNDERSTANDING OF SAME. NEEDED PRESCRIPTIONS GIVEN TO PATIENT AND ESCRIBED TO PHARMACY OF CHOICE. SL AND IV TO LEFT FOREARM D/C WITH CATHETER INTACT. ALL BELONGINGS WITH PATIENT.
--- NOTE | 2019-02-02 16:51 | MORECARE ---
CASE MANAGEMENT DISCHARGE SUMMARY PATIENT: SHERRILL CLARK UNIT: [id number] ADM DATE: 01/30/19 AGE: 83 : 35 SEX: M ROOM/BED: D.2207 AUTHOR: PATTY MONTEZ PHYSICIAN: REFERRING PHYSICIAN: ASAEL ESTES DO DATE OF SERVICE: 02/02/19 Discharge Plan Patient Name: SHERRILL CLARK Facility: [facility]:[place] : 1935 Planned Disposition: Home Anticipated Discharge Date: Discharge Date: 02/02/2019 Expected LOS: 0 Initial Reviewer: [email or web address] Initial Review Date: 01/30/2019 Generated: 02/02/19 5:50 pm Comments DCP- Discharge Planning Updated by [email or web address]: Emma Muir on 02/02/19 11:[address] PATIENT WILL BE DISCHARGING HOME TODAY, IMM SERVED AND EXPLAINED. PATIENT DENIES ANY NEEDS AT THIS TIME DCP- Discharge Planning Updated by [email or web address]: Emma Muir on 02/01/19 12:[address] Patient Name: SHERRILL CLARK Admission Status: Urgent Accout number: [id number] Admission Date: 01-30-2019 : 1935 Admission Diagnosis: Attending: ASAEL ESTES Current LOS: 2 Anticipated DC Date: Planned Disposition: Home Primary Insurance: MEDICARE A & B Discharge Planning Comments: CM met with patient to complete initial dc planning assessment. CM educated patient on the CM role and verbal consent given by patient to complete assessment. Patient lives at home with his where he is independent with his care. At discharge patient plans to return home and feels this is a safe discharge. CM discussed availability of home health, rehab services, and medical equipment. He stated that he has a BSC,walker, and crutches at home, but does not use anything. His , Pedro Pablo will be his otr driver home. Patient denied known discharge needs at this time. CM will continue to follow and will assist as needed with dc plans/needs. Model Maker Apprentice: Emma Muir DCPIA - Discharge Planning Initial Assessment Updated by [email or web address]: Emma Muir on 02/01/19 1:46 pm * Is the patient Alert and Oriented? Yes * How many steps to enter\exit or inside your home? * PCP [facility] * Pharmacy [facility] * Preadmission Environment Home with Family * ADLs Independent * Equipment Bedside Commode Crutch Rolling Walker * List name and contact numbers for known caregivers / representatives who currently or will assist patient after discharge: PEDRO PABLO (SPOUSE) [phone] * Verbal permission to speak to the caregivers and representatives has been obtained from the patient. N/A * Community resources currently utilized None * Additional services required to return to the preadmission environment? No * Can the patient safely return to the preadmission environment? Yes * Has this patient been hospitalized within the prior 30 days at any hospital? No Coverage Notice Reviewer: [id number] Airam Muir Notice Issued Date-Time: 02/02/2019 11:30 Notice Type: IM Discharge Notice Notice Delivered To: Patient Relationship to Patient: Primary Care Nurse Practitioner Name: Delivery Method: HAND - Hand Delivered Juanis Days: Prior Verbal Notification: Recipient Understood Notice: Yes Recipient Signature: Yes Med Rec Note Co-signed by Attending: Coverage Notice Comment: Last DP export: 02/02/19 11:31 a Patient Name: SHERRILL CLARK Page [phone] at 1651 All edits/amendments must be made on the electronic document DICTATION DATE: 02/02/191649 IMCU SPECIALIST: NORMA 02/02/191649 RPT#: [id number] DC DATE:02/02/19 STATUS: DIS IN [facility] [address] [place] [address] END OF REPORT
--- NOTE | 2019-02-05 20:31 | OP ---
PATIENT NAME: SHERRILL CLARK MEDICAL RECORD: [id number] :[birth year] LOCATION:D.[facility] ADMISSION DATE:01/30/19 SURGEON: LESLI MCCLOUD DO DATE OF OPERATION: 02/01/2019 PROCEDURE: EGD with biopsy and colonoscopy with polypectomy and endoclipping. INDICATIONS FOR PROCEDURE: Anemia and GI bleeding. SCOPE: Olympus video gastroscope and pediatric colonoscope. MEDICATIONS: Propofol 580 mg IV per anesthesia. WITHDRAWAL TIME: 57 minutes. ESTIMATED BLOOD LOSS: Less than 5 mL. COMPLICATIONS: None immediate. FINDINGS AND DESCRIPTION OF PROCEDURE: Informed consent was given. The patient was made comfortable with the above medication. After reaching an adequate level of sedation by slow IV push, the patient was placed in his left side. The gastroscope was directed through the mouth to the second portion of the duodenum with ease during the EGD portion. The entire esophagus appeared normal. At the GE junction, there was evidence of LA class A reflux-induced esophagitis. The endoscope was advanced beyond the GE junction into the stomach and retroflexed to view the cardia, where a small sliding hiatal hernia was present. In a diffuse pattern throughout the entire stomach, there was evidence of gastritis with appearances of erythema, granularity, and superficial ulcerations in a fissure like pattern. Random biopsies were taken from the antrum and incisura to submit for histopathology and to rule out the presence of H. pylori. The endoscope was advanced beyond the pylorus into the duodenum, which appeared normal down to the second portion. The endoscope was then withdrawn from the patient. The patient was turned around. A digital rectal examination was performed and it was normal. The endoscope was then advanced under direct visualization through the rectum to the cecum, confirmed by the presence of the appendiceal orifice and ileocecal valve. The endoscope was slowly withdrawn and the mucosa was carefully examined. There was evidence of mild diverticulosis throughout the entire colon. Retroflexion revealed some grade I internal hemorrhoids without bleeding. There were multiple polyps visualized on today's examination. The most significant polyp was located at 25 cm. It was approximately 5-6 cm in size and was semi-pedunculated. It was removed using endoscopic mucosal resection technique with a pillow of [place] prior to piecemeal snare resection down to the base. Once the base was visualized, the residual polypoid tissue around the edges were cauterized and 3 endoclips were used to close the defect left behind from polyp removal. Also, in the sigmoid colon, near this large polyp, was a sigmoid polyp that measured approximately 7-mm in diameter. It was removed using a hot snare in 1 piece and completely retrieved. In the descending colon, there were two separate polyps, which were benign-appearing and sessile. They ranged in size from 3-5 mm in diameter. They were both removed using a hot snare in 1 piece and completely retrieved. In the transverse colon, there were 5 separate polyps which were benign-appearing and sessile. They ranged in size from 3-7 mm in diameter. They were all removed using a hot snare in 1 piece and completely retrieved. In the ascending colon, there were 4 separate polyps which were benign-appearing OPERATIVE REPORT [id number] SHERRILL CLARK and sessile. These were smaller polyps that ranged in size from 2-4 mm in diameter. They were all removed using hot forceps in 1 piece and completely retrieved. The endoscope was withdrawn from the patient. The patient tolerated the procedure well and there were no immediate complications. IMPRESSIONS: 1. LA class A reflux-induced esophagitis. 2. Small sliding hiatal hernia. 3. Gastritis. 4. Mild diverticulosis of the entire colon. 5. Grade I internal hemorrhoids without bleeding. 6. Multiple polyps as described above, removed using a combination of EMR technique, hot snare, and hot forceps. 7. Three endoclips were placed on the largest polyp as described above at 25 cm. PLAN AND RECOMMENDATIONS: 1. Return to floor and resume full liquid diet today followed by regular diet tomorrow. 2. I would recommend continuing to hold Xarelto for approximately 5 days if okay with other physicians regarding the high risk of bleeding from the large polyp removal today. 3. Monitor CBC and transfuse as needed, but I do not see any further bleeding and I suspect that the large polyp played a large role in the patient's bright red bleeding that I saw. 4. We will follow along during the course of hospitalization. TRANSINT:[id number] Voice Confirmation ID: [id number] DOCUMENT ID: [id number] LESLI MCCLOUD DO at 203 CC: [id number] DICTATION DATE: 02/01/19 1204 CARDIOGRAPHER: 02/01/19 1337 DIS IN 02/02/19 [facility] [address] [place] [address]
== END 2019-02-02 13:45 | disposition home or self-care (01) | DRG 394 ==
LOC: D.MS 15:19
PROVIDERS: Emergency Medicine; Internal Medicine Gastroenterology; ADMIT Family Medicine; ATTEND Family Medicine
PROC: 0DBF8ZX Excision of Right Large Intestine, Via Natural or Artificial Opening Endoscopic, Diagnostic (ICD-10-PCS; 2019-02-01)
PROC: 0DB68ZX Excision of Stomach, Via Natural or Artificial Opening Endoscopic, Diagnostic (ICD-10-PCS; principal; 2019-02-01 11:30)
DX: K63.5 Polyp of colon (principal); K92.2 Gastrointestinal hemorrhage, unspecified; K44.9 Diaphragmatic hernia without obstruction or gangrene; I48.2 Chronic atrial fibrillation; E66.9 Obesity, unspecified; Z68.35 Body mass index [BMI] 35.0-35.9, adult; K29.70 Gastritis, unspecified, without bleeding

== ENCOUNTER 2019-06-12 11:05 | Day surgery (SDC) | payer MEDICARE ==
[~2019-06-12] VITALS: Ht 182.9 cm; Wt 124.1 kg
[~2019-06-12 11:05] MED LIST changes: +HYDROCODON-ACE1 EAC7 PO; +PROTONIX40 MG PO
[2019-06-12 11:22] LABS: BASOPHILS 0.3 % (0-2); EOSINOPHILS 3.3 % (0-7); HEMATOCRIT 42.5 % (42.0-54.0); HEMOGLOBIN 14.7 g/dL (13.5-17.5); IMMATURE GRANULOCYTES 0.3 % (0-5); LYMPHOCYTES 31.4 % (15-50); MCH 32.7 pg (26.0-34.0); MCHC 34.6 g/dL (31.0-37.0); MCV 94.7 fL (80.0-100.0); MEAN PLATELET VOLUME 10.4 fL (7.4-10.4); MONOCYTES 13.3 % (2-11); NEUTROPHILS 51.4 % (40-80); RBC 4.49 10x6/uL (4.20-6.10); RDW 12.6 % (11.5-14.5); WBC 5.8 10x3/uL (4.8-10.8)
[2019-06-12 11:34] LABS: PLATELET COUNT 205 10x3/uL (130-400)
[2019-06-12 11:35] LABS: ANION GAP 10.5 mmol/L (8-16); CALCIUM 8.9 mg/dL (8.5-10.1); CARBON DIOXIDE 31.1 mmol/L (21.0-32.0); CREATININE - SERUM 1.1 mg/dL (0.6-1.3); POTASSIUM - SERUM 4.6 mmol/L (3.5-5.1)
[2019-06-12 12:23] VITALS: BP 142/76; Ht 182.9 cm; Wt 124.1 kg
[2019-06-12] MEDS ORDERED: ELIQUIS5 MG PO (12:26)
[2019-06-12] MEDS ORDERED: PRAVACHOL20 MG PO (12:27)
--- NOTE | 2019-06-12 14:31 | NUR ---
1425 DR. ROGERS SORIANO. 1430 WATER AND JUICE SERVED.
--- NOTE | 2019-06-21 16:44 | OP ---
PATIENT NAME: SHERRILL CLARK MEDICAL RECORD: [id number] :[birth year] LOCATION:[place] ADMISSION DATE: SURGEON: LESLI MCCLOUD DO DATE OF OPERATION: 06/12/2019 PROCEDURE: Colonoscopy with polypectomy. 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 SCOPE: Olympus video pediatric colonoscope. MEDICATIONS: Propofol IV per anesthesia. ESTIMATED BLOOD LOSS: Minimal. COMPLICATIONS: None. FINDINGS: Informed consent was given. The patient was sedated with propofol and placed on his left side. A digital rectal examination was performed and was normal. The endoscope was then advanced under direct visualization through the rectum to the cecum, confirmed by the presence of the appendiceal orifice and ileocecal valve. The endoscope was slowly withdrawn and mucosa was carefully examined. The prep quality was good. There were multiple polyps visualized on today's examination. Three were located in the ascending colon. They were all benign appearing and sessile and ranged in size from 2-4 mm in diameter. They were all removed using hot forceps. In the ascending colon, there was a single benign-appearing polyp, which measured approximately 5-6 mm in diameter. It was removed using hot snare in 1 piece. In the transverse colon, there was a benign appearing sessile polyp, which was removed using hot snare. It measured approximately 5 mm in diameter. In the descending colon, there was a single benign-appearing sessile polyp, which measured approximately 5 mm in diameter as well. It was removed using hot snare. In the sigmoid colon at 25 cm, the previously identified polyp site was visualized. There was no residual polypoid tissue apparent. Biopsies were taken at the base of the polyp site and the site was cauterized. There was also a single benign-appearing sessile polyp in the sigmoid colon near this site. The polyp measured approximately 5 mm in diameter. It was removed using a hot forceps. Retroflexion was performed in the rectum with a normal-appearing rectal wall. There was evidence of mild diverticulosis involving the left side of the colon. The endoscope was withdrawn from the patient. The patient tolerated the procedure well, and there were no complications. IMPRESSION: 1. Multiple polyps as described above removed using a combination of a hot snare and hot forceps. 2. Mild diverticulosis of the left side of the colon. 3. Previously identified polyp site at 25 cm was visualized and biopsies were taken prior to cauterization. PLAN AND RECOMMENDATIONS: 1. Discharge home when recovery parameters are met. 2. Follow up biopsy specimen results. 3. High fiber diet. 4. Continue current medications. OPERATIVE REPORT [id number] SHERRILL CLARK 5. No further recalls are necessary based on the patient's age unless symptoms warrant evaluation. TRANSINT:[id number] Voice Confirmation ID: [id number] DOCUMENT ID: [id number] LESLI MCCLOUD DO at 1644 CC: [id number] DICTATION DATE: 06/12/19 1405 APPRAISAL COORDINATOR: 06/13/19 0003 [facility] 06/12/19 [facility] [address] [place] [address]
== END 2019-06-12 15:00 | disposition home or self-care (01) ==
LOC: D.OPS 11:05
PROVIDERS: Family Medicine; ATTEND Internal Medicine Gastroenterology
DX: K63.5 Polyp of colon (principal); D12.5 Benign neoplasm of sigmoid colon; Z86.010 Personal history of colon polyps; K57.90 Diverticulosis of intestine, part unspecified, without perforation or abscess without bleeding

== ENCOUNTER → 2019-11-17 08:56 | Outpatient (CLI) | payer MEDICARE, BC ==
[2019-06-12 12:23] VITALS: BMI 37.1
--- NOTE | ~2019-11-17 | EC ---
PATIENT:SHERRILL CLARK DATE OF SERVICE: 11/17/19 SEX: M MEDICAL RECORD: [id number] DATE OF : [birth year] LOCATION:D.[facility] AGE OF PATIENT: 84 ADMISSION DATE: 11/17/19 REFERRING PHYSICIAN: INTERPRETING PHYSICIAN: ANAND HOUSER MD ECHOCARDIOGRAM REPORT ECHO CHARGES 4 ECHO COMPLETE Date: 11/17/19 CLINICAL DIAGNOSIS: H/O HTN/A-FIB ECHOCARDIOGRAPHIC MEASUREMENTS (adult normal given) AC root (d.<3.7cm) 3.5 cm LV Septum d (<1.2 cm> 1.2 cm Valve Excursion 2.4 cm LV Septum (systole) 1.8 cm Left Atria (s.<4.0cm> 4.3 cm LVPW d(<1.2cm) 1.1 cm RV (d.<2.3cm) 2.7 cm LVPW (sytole) 1.7 cm LV diastole(<5.6CM) 8.4 cm MV E-F(>70mm/sec) cm LV systole 6.5 cm LVOT Diameter 2.2 cm MV exc.(>10mm) cm Est.ejection fraction (50-75%) % DOPPLER: LVIT cm/sec A 97.0 cm/sec E 81.0 cm/sec LA cm/sec RVSP 41.2 mmHg LVOT 95.0 cm/sec AOP1/2T m/s Asc. Ao 136 cm/sec RVOT 55.0 cm/sec RA cm/sec PA 91.0 cm/sec AV Gradient Peak 7.4 mmHg AV Mean 3.6 mmHg AV Area 2.5 cm MV Gradient Peak 4.1 mmHg MV Mean 1.2 mmHg MV Area cm COMMENTS: OP - HC Tobacco Sieve Operator: 1 JAKY TOREY Rig Hand: 3 Dr. Byrd TAPE# PACS Pericardial Effusion N DATE OF SERVICE: Adequate 2-D, color flow imaging, spectral Doppler, and M-mode. No LVH. LV internal dimension is normal. Wall motion is normal. EF is greater than or equal to 55%. Aortic valve is sclerotic. No evidence of stenosis by Doppler interrogation. Left atrium is mildly dilated at 4.3 cm. Mitral valve shows no prolapse. Mild MR. Right-sided chambers are grossly normal. Mild TR. TRANSINT:[id number] Voice Confirmation ID: [id number] DOCUMENT ID: [id number] ECHOCARDIOGRAM REPORT [id number] SHERRILL CLARK GREGORY A MD CC: [id number] DICTATION DATE: 11/18/19 1232 MELTER HELPER: 11/19/19 0148 DEP CLI 11/17/19 [place] [id number]
[~2019-11-17 08:56] MED LIST changes: +ELIQUIS5 MG PO; +PRAVACHOL20 MG PO
== END | disposition home or self-care (01) ==
LOC: D.HCCECHO 08:56
PROVIDERS: ATTEND Internal Medicine Interventional Cardiology
DX: I10 Essential (primary) hypertension (principal)

== ENCOUNTER → 2020-11-25 10:12 | Outpatient (CLI) | payer MEDICARE, BC ==
[2019-06-12 12:23] VITALS: BMI 37.1
--- NOTE | ~2020-11-25 | EC ---
PATIENT:SHERRILL CLARK DATE OF SERVICE: 11/25/20 SEX: M MEDICAL RECORD: [id number] DATE OF : [birth year] LOCATION:D.[facility] AGE OF PATIENT: 85 ADMISSION DATE: 11/25/20 REFERRING PHYSICIAN: INTERPRETING PHYSICIAN: ANAND HOUSER MD ECHOCARDIOGRAM REPORT ECHO CHARGES 4 ECHO COMPLETE Date: 11/25/20 CLINICAL DIAGNOSIS: HX OF HTN/LVH AFIB ASSESS EF /LVH/ VAVLES ECHOCARDIOGRAPHIC MEASUREMENTS (adult normal given) AC root (d.<3.7cm) 4.6 cm LV Septum d (<1.2 cm> 1.6 cm Valve Excursion 2.0 cm LV Septum (systole) 1.9 cm Left Atria (s.<4.0cm> 4.1 cm LVPW d(<1.2cm) 1.7 cm RV (d.<2.3cm) 4.3 cm LVPW (sytole) 2.0 cm LV diastole(<5.6CM) 4.9 cm MV E-F(>70mm/sec) cm LV systole 3.4 cm LVOT Diameter 2.2 cm MV exc.(>10mm) cm Est.ejection fraction (50-75%) % DOPPLER: LVIT cm/sec A 53.0 cm/sec E 63.0 cm/sec LA cm/sec RVSP 20 mmHg LVOT 86 cm/sec AOP1/2T m/s Asc. Ao 131 cm/sec RVOT 56 cm/sec RA cm/sec PA 77 cm/sec AV Gradient Peak 6.81 mmHg AV Mean 3.59 mmHg AV Area 2.6 cm MV Gradient Peak 3.62 mmHg MV Mean 1.12 mmHg MV Area cm COMMENTS: Crude Oil Treater: 2 KATIA GALLAGHER Overnight Caregiver: 3 Dr. Byrd TAPE# PACS Pericardial Effusion N DATE OF SERVICE: Adequate 2D, color-flow imaging, spectral Doppler, and M-Mode FINDINGS: LVH is present. LV internal dimension is normal. Wall motion is normal. EF is greater than or equal to 55%. Aortic valve is tricuspid. No evidence of stenosis by Doppler interrogation. There is mild plus AI by color-flow imaging. Left atrium is minimally dilated at 4.1 cm. Mitral valve shows no prolapse. Trace MR. Right side is grossly normal. Mild TR. ECHOCARDIOGRAM REPORT [id number] SHERRILL CLARK TRANSINT:[id number] Voice Confirmation ID: [id number] DOCUMENT ID: [id number] ANAND HOUSER MD CC: [id number] DICTATION DATE: 11/26/20808 MASONRY CONTRACTOR ADMINISTRATOR: 11/26/20 1156 DEP CLI 11/25/20 [facility] [address] [place] [id number]
== END | disposition home or self-care (01) ==
LOC: D.HCCECHO 10:12
PROVIDERS: ATTEND Internal Medicine Interventional Cardiology
DX: I10 Essential (primary) hypertension (principal)